=== PATIENT | female | born 1965 | race Hispanic/Latino ===

== ENCOUNTER 2017-03-18 15:01 | Outpatient (CLI) | payer BC ==
--- NOTE | 2017-03-18 16:10 | Mammography Report ---
Bilateral mammogram: No previous studies are available. CAD study utilized. Findings: Predominance of adipose tissue bilaterally. Focal dense asymmetry seen in the right breast. 3 mm focal asymmetric density medial to right breast adjacent to skin. Normal axilla. Impression: Focal asymmetries right breast. Comparison with previous studies is advised. If previous studies are not available spot mag, exaggerated views COMMENT: Patient follow-up letters are generated in [facility].and sonographic examination recommended. BI-RADS CATEGORY: 0 = Needs additional imaging evaluation ACR BI-RADS MAMMOGRAPHIC CODES: 0 = Needs additional imaging evaluation; 1 = Negative; 2 = Benign; 3 = Probably benign; 4 = Suspicious; 5 = Malignant; 6 = Known biopsy-proven malignancy COMMENT: 1. Dense breast tissue, i.e., adenosis, fibrocystic changes, etc., may obscure an underlying neoplasm. 2. Approximately 10% of cancers are not detected with mammography. 3. A negative mammography report should not delay biopsy if a clinically suspicious mass is present.
--- NOTE | 2017-03-21 14:00 | Magnetic Resonance Report ---
MRI scan of brain: No previous studies available for comparison. History: Multiple sclerosis. Technique: Multiplanar, multisequence images were obtained without and with contrast injection. Findings: Ventricles are normal in size and midline in location. Periventricular and pericallosal areas of abnormal signal intensity are noted, with the largest in the right occipital lobe, suggestive of chronic MS plaques. Similar findings also noted involving the [place] and midbrain. No abnormal enhancements noted following injection of contrast. No extra-axial fluid collection. Normal sinuses and mastoid air cells. Impression: Multiple chronic MS plaques as detailed above. No acute exacerbation.
== END 2017-03-18 15:02 | disposition home or self-care (01) ==
LOC: MAMMO 15:01
PROVIDERS: ATTEND Psychiatry & Neurology Neurology
DX: Z12.31 Encounter for screening mammogram for malignant neoplasm of breast (principal); G35 Multiple sclerosis; F17.200 Nicotine dependence, unspecified, uncomplicated
CPT/HCPCS: 70553; A9577; G0202; 77067

== ENCOUNTER 2020-05-29 23:41 | Emergency (ER) | payer BC, MEDICARE ==
[2020-05-29] MEDS ORDERED: SODIUM BICARB 8.4% 50 MEQ/50 ML SYRINGE IV ONE (23:45)
[2020-05-29] MEDS ORDERED: EPINEPHrine 1 MG/10 ML SYRINGE ONE (23:45)
[2020-05-29] MEDS ORDERED: SODIUM CHLORIDE 0.9% 1000 ML 1,000 ML IV ONE (23:56)
--- NOTE | 2020-05-30 00:12 | Emergency Department Report ---
HPI - General Time Seen by Provider: 05/29/20 23:55 - HPI HPI: Room 1 The patient is a 55-year-old female present with a chief complaint of cardiac arrest. Per EMS they originally received a call for difficulty breathing. EMS states they arrived on scene at 23: 04 to find the patient pulseless and apneic. ACLS protocols were initiated. EMS states the patient was initially in PEA and then asystole. The patient was intubated using a Keith airway. Upon arrival to the ED the Keith airway was removed and patient was intubated by myself using a glidescope. ACLS protocols were continued with eventual return of spontaneous circulation ED Past Medical Hx - Past Medical History Hx of Cancer: Yes (Bladder CA) Additional medical history: MS - Family History Family history: no significant - Social History Smoking Status: Unknown if ever smoked Substance Use Type: None - Medications Home Medications: Home Medications Medication Instructions Recorded Confirmed Last Taken Type Nitrofurantoin [place]/M-Cryst 100 mg PO Q12HR #20 capsule 09/19/15 Unknown Rx [Macrobid CAP] traMADoL [Ultram 50 MG tab] 50 mg PO Q4HR PRN #20 tablet 09/19/15 Unknown Rx ED Review of Systems ROS: Stated complaint: CARDIAC ARREST Other details as noted in HPI Comment: Unobtainable due to pts medical conditions Physical Exam - Physical Exam Physical Exam: GENERAL: The patient is well-developed well-nourished female lying on stretcher receiving chest compressions from EMS and being bagged via Keith airway. [] HEENT: Normocephalic. Atraumatic. NECK: Supple. Trachea midline CHEST/LUNGS: No spontaneous respirations. Breath sounds equal bilaterally after intubation by myself with bagging HEART/CARDIOVASCULAR: No heart sounds. Asystole on the monitor ABDOMEN: Abdomen is soft SKIN: There is no diaphoresis. NEURO: GCS 3 T MUSCULOSKELETAL: There is no evidence of acute injury. - Intubation Time Out Performed: No Laryngoscope: fiberoptic video scope Size: 3 Assist Device Used: fiberoptic device ET Tube Size: 8 Tube Secured Depth (cm): 21 Tube Secured Location: lips Tube Placement Confirmation: visualized tube passing t, equal breath sounds bilat, no breath sounds over epi Patient Tolerated Procedure: no complications Intubation Complications: none ED Medical Decision Making - Differential Diagnosis Cardiac arrest Critical care attestation.: If time is entered above; I have spent that time in minutes in the direct care of this critically ill patient, excluding procedure time. ED Disposition Clinical Impression: Cardiac arrest Disposition: DC-20 Is pt being admited?: No Does the pt Need Aspirin: No Condition: Poor Time of Disposition: 00:12 (Patient )
== END 2020-05-30 03:06 ==
LOC: ED 23:41
DX: I50.9 Heart failure, unspecified (principal); Z85.51 Personal history of malignant neoplasm of bladder
CPT/HCPCS: 31500; 99285; J0171